=== PATIENT | female | born 1980 | race African-American/Black ===

== ENCOUNTER 2018-02-17 10:54 | Inpatient (IN) | payer OTHER ==
[2018-02-17] VITALS (7 sets, daily range): BP systolic 130–148; BP diastolic 64–99
[~2018-02-17 10:54] MED LIST: IRON240 MG PO; MAGNESIUM250 MG PO
[2018-02-17 12:24] LABS: HEMATOCRIT 36.2 % (36.0-46.0); HEMOGLOBIN 11.5 G/DL (11.9-15.5); MCH 26.8 PG (29.0-34.0); MCHC 31.8 G/DL (30.0-36.0); MCV 84.4 FL (83-99); PLATELET COUNT 196 K/uL (156-360); RBC DIS.WIDTH-CV 20.9 % (11.8-14.6); RBC DIS.WIDTH-SD 62.9 % (39-53); RED BLOOD COUNT 4.29 M/uL (3.80-5.20); WHITE BLOOD COUNT 14.1 K/uL (4.1-10.2)
[2018-02-17 12:36] LABS: BASOPHIL (%) 0.1 % (0-1); EOSINOPHIL (%) 0.3 % (0-5); IMMATURE GRANULOCYTE (%) 0.7 % (0.0-0.7); LYMPHOCYTE (%) 9.9 % (15-42); LYMPHOCYTE COUNT 1.4 K/uL (1.0-2.8); MONOCYTE (%) 6.9 % (3-12); NEUTROPHIL (%) 82.1 % (45-76); NEUTROPHIL COUNT 11.6 K/uL (1.8-6.4)
[2018-02-17 12:52] LABS: ANTI-HIV (AIDS STAT TEST) NONREACTIVE
[2018-02-17 13:05] LABS: HIV-1/2 AB/AG COMBO Nonreactive
[2018-02-17 13:18] LABS: AMPHETAMINE NEGATIVE (500 ng/mL); BARBITURATES NEGATIVE (200 ng/mL); BENZODIAZEPINES NEGATIVE (150 ng/mL); BUPRENORPHINE NEGATIVE (10 ng/mL); COCAINE NEGATIVE (150 ng/mL); METHADONE NEGATIVE (200 ng/mL); METHAMPHETAMINE NEGATIVE (500 ng/mL); OPIATES (MORPHINE) NEGATIVE (100 ng/mL); OXYCODONE NEGATIVE (100 ng/mL); PHENCYCLIDINE NEGATIVE (25 ng/mL); PROPOXYPHENE NEGATIVE (300 ng/mL); THC CANNABINOIDS NEGATIVE (50 ng/mL); TRICYCLIC ANTIDEPRESSANTS NEGATIVE (300 ng/mL)
[2018-02-17] MEDS ORDERED: IBUPROFEN800 MG PO (13:27)
[2018-02-17 14:15] LABS: TREPONEMA ANTIBODY NEGATIVE (NEGATIVE)
[2018-02-18 06:16] LABS: BASOPHIL (%) 0.2 % (0-1); EOSINOPHIL (%) 0.6 % (0-5); EOSINOPHIL COUNT 0.1 K/uL (0-0.3); HEMATOCRIT 34.1 % (36.0-46.0); HEMOGLOBIN 10.5 G/DL (11.9-15.5); IMMATURE GRANULOCYTE (%) 0.7 % (0.0-0.7); LYMPHOCYTE (%) 13.3 % (15-42); MCH 26.2 PG (29.0-34.0); MCHC 30.8 G/DL (30.0-36.0); MONOCYTE (%) 7.7 % (3-12); MONOCYTE COUNT 1.2 K/uL (0-0.8); NEUTROPHIL (%) 77.5 % (45-76); NEUTROPHIL COUNT 11.7 K/uL (1.8-6.4); PLATELET COUNT 192 K/uL (156-360); RBC DIS.WIDTH-CV 20.7 % (11.8-14.6); RBC DIS.WIDTH-SD 64.4 % (39-53); RED BLOOD COUNT 4.01 M/uL (3.80-5.20); WHITE BLOOD COUNT 15.1 K/uL (4.1-10.2)
== END 2018-02-19 16:43 | disposition home or self-care (01) | DRG 775 ==
LOC: LDRP-OP 10:54 → 2WEST 10:55 → LDRP-OP 03-22 12:32
PROVIDERS: Midwife; Obstetrics & Gynecology Gynecology
DX: O70.0 First degree perineal laceration during delivery (principal); O77.0 Labor and delivery complicated by meconium in amniotic fluid; O62.3 Precipitate labor; O69.81X0 Labor and delivery complicated by cord around neck, without compression, not applicable or unspecified; O99.824 Streptococcus B carrier state complicating childbirth; O99.02 Anemia complicating childbirth; D50.9 Iron deficiency anemia, unspecified; O34.219 Maternal care for unspecified type scar from previous cesarean delivery; Z3A.39 39 weeks gestation of pregnancy; Z37.0 Single live birth; Z59.0 Homelessness
CPT/HCPCS: 85025; 86780; 86850; 86900; 86901; 87389; J7120